=== PATIENT | female | born 1955 | race Asian ===

== ENCOUNTER 2023-07-27 18:19 | Emergency (ER) | payer OTHER ==
[~2023-07-27] VITALS: Ht 165.1 cm; Wt 65.8 kg
[2023-07-27 18:20] VITALS: BP_SYST 175; PULSE 92; RESP 18; TEMP 97.6; O2SAT 99
[2023-07-27] MEDS: MECLIZINE HCL 25 MG TABLET (ANITVERT) PO ONE (19:45)
[2023-07-27] MEDS: METOCLOPRAMIDE HCL 10 MG/2 ML VIAL IVP ONE (19:56)
[2023-07-27] MEDS: NACL 0.9% 1,000 ML IV ONE (19:57)
[2023-07-27 20:18] LABS: BILIRUBIN,DIRECT 0.2 mg/dL (0.0-0.3); CALCIUM 8.8 mg/dL (8.4-11.0); CREATININE 0.83 mg/dL (0.55-1.30); POTASSIUM 3.9 mmol/L (3.5-5.1); TOTAL BILIRUBIN 0.9 mg/dL (0.0-1.0); TOTAL PROTEIN, SERUM 8.1 g/dL (6.4-8.3)
[2023-07-27 20:20] LABS: BASOPHILS % (AUTO) 0.1 % (0.0-2.0); EOSINOPHILS % (AUTO) 0.1 % (0.0-4.0); HEMATOCRIT 45.6 % (36-48); HEMOGLOBIN 15.5 g/dL (12.0-16.0); LYMPHOCYTES # (AUTO) 0.3 K/uL (1.0-5.5); MEAN CORPUSCULAR HEMOGLOBIN 31 pg (27-31); MEAN CORPUSCULAR HGB CONC 34 % (32-36); MEAN CORPUSCULAR VOLUME 91 fL (79.0-98.0); MONOCYTES # (AUTO) 0.3 K/uL (0.0-1.0); MONOCYTES % (AUTO) 2.1 % (1.7-9.3); NEUTROPHILS % (AUTO) 95.7 % (40.0-70.0); PLATELET COUNT (AUTO) 258 K/uL (130-430); RED BLOOD CELL COUNT(AUTO) 4.99 MIL/uL (4.2-6.2); RED CELL DISTRIBUTION WIDTH 13.6 % (9.0-15.0); WHITE BLOOD COUNT (AUTO) 12.5 K/uL (4.8-10.8)
[2023-07-27] MEDS ORDERED: ONDA-8 TL (21:16)
[2023-07-27 21:23] VITALS: BP_SYST 175; PULSE 92; RESP 18; TEMP 97.6; O2SAT 99
== END 2023-07-27 21:23 | disposition home or self-care (01) ==
LOC: SED 18:19
DX: R51.9 Headache, unspecified (principal); Z91.018 Allergy to other foods; Z79.899 Other long term (current) drug therapy
CPT/HCPCS: 99284; 96374; 96361; 80076; 80048; 85025; 36415; 93005; J2765; J7030; J8597